=== PATIENT | male | born 1960 | race Caucasian/White ===

== ENCOUNTER 2017-12-03 09:21 | Day surgery (SDC) | payer OTHER, SELFPAY ==
[2017-12-03 09:41] VITALS: BMI 26.9
[2017-12-03] MEDS: SODIUM CHLORIDE 0.9% 1,000 ML 70 ML IV (10:01)
--- NOTE | 2017-12-03 10:14 | PM.HP.1 ---
History of Present Illness Chief complaint: [id number] Narrative: 57-year-old male seen at our office in August 2017 with a longstanding history of postprandial bloating of unclear etiology. Colonoscopy performed in 2004 was unrevealing. 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 The patient returns today given persistence of symptoms. This will also serve as a screening colonoscopy Patient History Family & Social History Social History: household members spouse Meds Home Medications Medication Instructions Recorded Confirmed Type ibuprofen 800 mg PO BID 12/03/17 12/03/17 History tramadol 50 mg PO Q12H 12/03/17 12/03/17 History Allergies Allergy/AdvReac Type Severity Reaction Status Date / Time No Known Drug Allergies Allergy Verified 12/03/17 09:38 Exam Narrative Exam Narrative: General: Patient is well developed, not in apparent distress Cardiovascular: Regular rate and rhythm, no murmurs, rubs, or gallops; no evidence of edema; no palpable abdominal aortic aneurysm Gastrointestinal: Normoactive bowel sounds, soft, nontender, nondistended, no rebound tenderness, no hepatosplenomegaly, no evidence of hernia Assessment & Plan Plan: Assessment/Plan Narrative: 57-year-old male with post prandial bloating who is here for evaluation of his colon. This will be performed for colon cancer screening and bloating Regarding the procedure(s), the risks and potential complications, benefits, and alternatives (including not doing the procedure) were discussed with the patient. The risks include but are not limited to bleeding, infection, perforation which may require surgical intervention, missed lesions, and adverse reactions to sedative medicines. After a question and answer period, the patient agreed to proceed with the procedure(s).
--- NOTE | 2017-12-03 10:25 | P.OP.ENDO_ITS ---
Operative Date/Time/Diagnoses - Date of procedure: 12/03/17 Time of procedure: 10:23 Procedure Notes Procedure in detail: Surgeon: Gene Woodard MD Procedure: Esophagogastroduodenoscopy with biopsy Preoperative diagnosis: GERD Postoperative diagnosis: Small hiatal hernia, gastric polyps Medications: Conscious sedation using 5 mg IV of Midazolam and 50 mcg IV of Fentanyl, Cetacaine spray Preanesthesia Assessment An H and P was performed/updated and the Px?s ASA class is 1. The procedure was discussed in detail with the patient. The potential risks and complications including infection, bleeding, missed lesions, perforation, need for surgery in case of perforation, prolonged hospital stay, and were explained. A brief question and answer period was allotted and once all questions were answered, informed consent was obtained. The patient was brought back to the procedure room and placed on standard monitoring. The patient?s vital signs were monitored continuously throughout the entire procedure. Prior to starting, a timeout was performed to confirm the patient?s identity, allergies, medications, and procedure. Procedure in detail The patient was placed in left lateral decubitus position and a bite block was inserted. The tip of the upper endoscope was placed in the mouth and advanced under direct visualization into the esophagus without difficulty. The esophageal mucosa appeared normal and the Z-line appeared regular. There is no distinct evidence of Cross's esophagus. The tip of the endoscope was then advanced all the way to the 2nd portion of the duodenum. The visualized duodenal mucosa appeared normal. The endoscope was then brought back to the stomach careful examination of all jaffe of the stomach revealed multiple 3-5 mm sessile and semipedunculated polyps in the gastric body. A commercial sales representative biopsy was taken. Retroflexion was performed in the stomach which revealed a small hiatal hernia. The stomach was then decompressed and examination of the esophagus was again performed with no note of any abnormalities. The procedure was then terminated The patient tolerated the procedure well and will be brought back to the recovery area to be discharged once criteria are met. The total procedure time from initial sedation was 10 min. Complications There were no complications and estimated blood loss was minimal. Recommendations: Resume previous diet Anti reflux measures at all times Continue outPx medications Follow up pathology results Office follow up with Kathrin Crum if with recurrent severe symptoms An emergency contact number was given to the patient for any complications related to the procedure
--- NOTE | 2017-12-03 10:39 | PM.DS.1 ---
History of Present Illness Chief complaint: [id number] Narrative: 57-year-old male seen at our office in August 2017 with a longstanding history of postprandial bloating of unclear etiology. Colonoscopy performed in 2004 was unrevealing. 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 The patient returns today given persistence of symptoms. This will also serve as a screening colonoscopy Discharge Providers Discharge provider: Gene Woodard MD Exam Narrative Exam Narrative: General: Patient is well developed, not in apparent distress Cardiovascular: Regular rate and rhythm, no murmurs, rubs, or gallops; no evidence of edema; no palpable abdominal aortic aneurysm Gastrointestinal: Normoactive bowel sounds, soft, nontender, nondistended, no rebound tenderness, no hepatosplenomegaly, no evidence of hernia Discharge Plan Discharge Plan Patient Disposition: Home, Self-Care Discharge comment: Called a scheduled follow-up with Dr. Jones if with persistent symptoms Remove IV prior to discharge Discharge to home once criteria are met (positive flatus, stable vital signs, no abdominal pain, tolerating p.o.) Discharge Med Rec/Prescriptions Prescriptions: Continue ibuprofen 800 mg Tablet 800 mg PO BID RF: 0 tramadol 50 mg Tablet 50 mg PO Q12H RF: 0 Discharge Orders: Discharge (Order); Ordered 12/03/17 Ordered By: Gene Woodard Provider Discharge Instructions Diet: Diet as Tolerated Visit Report/Discharge Packet Stand Alone Forms: Surgery Discharge Discharge Data Attending Provider: Gene Woodard
[2017-12-03] MEDS: MIDAZOLAM 5 MG/5 ML VIAL IV (11:13)
[2017-12-03] MEDS: fentaNYL 250 MCG/5 ML INJ IV (11:14)
--- NOTE | 2017-12-03 11:34 | PM.OP.ENDO ---
Operative Date/Time/Diagnoses - Date of procedure: 12/03/17 Time of procedure: 10:58 Procedure Notes Procedure in detail: Surgeon: Gene Woodard MD Procedure: Colonoscopy Preoperative diagnosis: Colon cancer screening average risk, postprandial bloating Postoperative diagnosis: Sigmoid diverticulosis, grade 1 internal hemorrhoids Medications: Conscious sedation using 6 mg IV of Midazolam and 100 mcg IV of Fentanyl Preanesthesia Assessment An H and P was performed/updated and the Px?s ASA class is 2. The procedure was discussed in detail with the patient. The potential risks and complications including infection, bleeding, missed lesions, perforation, need for surgery in case of perforation, prolonged hospital stay, and were explained. A brief question and answer period was allotted and once all questions were answered, informed consent was obtained. The patient was brought back to the procedure room and placed on standard monitoring. The patient?s vital signs were monitored continuously throughout the entire procedure. Prior to starting, a timeout was performed to confirm the patient?s identity, allergies, medications, and procedure. Procedure in detail The patient was placed in left lateral decubitus position and once adequate sedation was obtained a KATTY was performed. The digital rectal examination did not reveal any palpable lesions. The tip of the colonoscope was placed in the anal canal and advanced without difficulty to the cecum which was identified by the appendiceal orifice and ileocecal valve. The terminal ileum was intubated to distance of 5 cm from the ileocecal valve. There were no mucosal abnormalities in the terminal ileum. The colonoscope was brought back to the cecum and careful examination of all jaffe of the colon was performed with irrigation of any residual stool. There were no mucosal abnormalities throughout the entire colon. In the sigmoid colon there note of few small diverticula. The colonoscope was then brought to the rectum retroflexion was performed and this revealed grade 1 internal hemorrhoids. The procedure was then terminated The patient tolerated the procedure well and will be brought back to the recovery area to be discharged once criteria are met. The prep was judged to be good/excellent and adequate to identify polyps less than 5 mm. The withdrawal time was 11.5 min. The total procedure time from initial sedation was 28 min. Complications There were no complications and estimated blood loss was none. Recommendations: Resume previous diet Follow-up at our office with Dr. Jones if with persistent symptoms Continue outPx medications Follow up pathology results Repeat colonoscopy in 10 years for screening An emergency contact number was given to the patient for any complications related to the procedure
[2017-12-03 11:40] VITALS: BP 135/81; PULSE 68; RESP 16; TEMP 36.2; O2SAT 100
[2017-12-03 12:00] VITALS: BP 119/76; PULSE 67; RESP 16; TEMP 36; O2SAT 98
== END 2017-12-03 12:05 | disposition home or self-care (01) ==
PROVIDERS: Visit Provider Internal Medicine Gastroenterology
PROC: 0DJD8ZZ Inspection of Lower Intestinal Tract, Via Natural or Artificial Opening Endoscopic (ICD-10-PCS; CPT 45378; principal; 2017-12-03 11:00)
DX: R14.0 Abdominal distension (gaseous) (principal); K57.30 Diverticulosis of large intestine without perforation or abscess without bleeding; K64.0 First degree hemorrhoids
CPT/HCPCS: 45378; J2250; J3010